=== PATIENT | female | born 1935 | race Caucasian/White ===

== ENCOUNTER 2020-01-22 10:10 | Outpatient (REF) | payer MEDICARE, SELFPAY ==
--- NOTE | 2020-01-22 10:16 | MM_ITS ---
EXAMINATION: MM SCREENING DIGITAL BREAST TOMOSYNTHESIS, BILATERAL CLINICAL INFORMATION: Screening. Asymptomatic. The lifetime risk of breast cancer based on the Tyrer-Cuzick Model is 1%. COMPARISON: Mammography: 12/24/2018, 12/21/2017, 12/19/2016 TECHNIQUE: Digital breast tomosynthesis is performed in both the craniocaudal and mediolateral oblique views along with computer-aided detection (CAD). Synthesized 2D images are generated from the tomosynthesis. FINDINGS: The breasts are almost entirely fatty (ACR BI-RADS breast composition Category a). Background stromal and fibroglandular densities are stable. There is stable nodular asymmetry 3:00 left breast similar to prior studies. No developing density. There is no significant mass or architectural abnormality or abnormal calcifications. MM/MM tomosynthesis screening BI IMPRESSION: No significant changes from prior studies. ASSESSMENT: BI-RADS 2: Benign RECOMMENDATION: Routine annual mammography screening. This patient's information was entered into a reminder system with a target due date for their next mammogram.
== END 2020-01-22 10:11 | disposition home or self-care (01) ==
LOC: HO.MAMMO 10:10
PROVIDERS: PCP Pediatrics; Visit Provider Pediatrics
DX: Z12.31 Encounter for screening mammogram for malignant neoplasm of breast (principal)
CPT/HCPCS: 77063; 77067

== ENCOUNTER 2021-02-10 08:00 | Outpatient (REF) | payer MEDICARE, SELFPAY ==
--- NOTE | ~2021-02-10 | MM_ITS ---
EXAMINATION: MM SCREENING DIGITAL BREAST TOMOSYNTHESIS, BILATERAL CLINICAL INFORMATION: Screening. Asymptomatic. The lifetime risk of breast cancer to age 85 based on the Tyrer-Cuzick Model is under 1%. COMPARISON: Mammography: 01/22/2020, 12/24/2018, 12/21/2017 TECHNIQUE: Digital breast tomosynthesis is performed in both the craniocaudal and mediolateral oblique views along with computer-aided detection (CAD). Synthesized 2D images are generated from the tomosynthesis. Additional left MLO view is provided. FINDINGS: The breasts are almost entirely fatty (ACR BI-RADS breast composition Category a). There are no significant masses, abnormal calcifications, or other abnormalities. Background stromal and fibroglandular densities are stable. No significant changes. MM/MM tomosynthesis screening BI IMPRESSION: No mammographic evidence of malignancy. ASSESSMENT: BI-RADS 1: Negative RECOMMENDATION: Routine annual mammography screening. This patient's information was entered into a reminder system with a target due date for their next mammogram.
== END 2021-02-10 08:01 | disposition home or self-care (01) ==
LOC: HO.MAMMO 08:00
PROVIDERS: PCP Pediatrics; Visit Provider Pediatrics
DX: Z12.31 Encounter for screening mammogram for malignant neoplasm of breast (principal)
CPT/HCPCS: 77063; 77067

== ENCOUNTER 2022-07-12 07:56 | Outpatient (REF) | payer MEDICARE, SELFPAY ==
--- NOTE | ~2022-07-12 | MM_ITS ---
EXAMINATION: MM SCREENING DIGITAL BREAST TOMOSYNTHESIS, BILATERAL CLINICAL INFORMATION: Screening. Asymptomatic. COMPARISON: Mammography: 02/10/2021, 01/22/2020, 12/24/2018 TECHNIQUE: Digital breast tomosynthesis is performed in both the craniocaudal and mediolateral oblique views along with computer-aided detection (CAD). Synthesized 2D images are generated from the tomosynthesis. FINDINGS: There are scattered areas of fibroglandular density (ACR BI-RADS breast composition Category b). There are no significant masses, abnormal calcifications, or other abnormalities. Parenchymal pattern is similar to prior studies. There is no developing density or architectural abnormality. The axilla and skin contours are unremarkable. No significant changes. MM/MM tomosynthesis screening BI IMPRESSION: No mammographic evidence of malignancy. ASSESSMENT: BI-RADS 1: Negative RECOMMENDATION: Routine annual mammography screening. This patient's information was entered into a reminder system with a target due date for their next mammogram.
== END 2022-07-12 07:57 | disposition home or self-care (01) ==
LOC: HO.MAMMO 07:56
PROVIDERS: PCP Pediatrics; Visit Provider Pediatrics
DX: Z12.31 Encounter for screening mammogram for malignant neoplasm of breast (principal)
CPT/HCPCS: 77063; 77067

== ENCOUNTER 2023-07-18 08:10 | Outpatient (REF) | payer MEDICARE, SELFPAY ==
--- NOTE | ~2023-07-18 | MM_ITS ---
EXAMINATION: MM SCREENING DIGITAL BREAST TOMOSYNTHESIS, BILATERAL CLINICAL INFORMATION: Screening. Asymptomatic. COMPARISON: Mammography: 07/12/2022, 02/10/2021, 01/22/2020, 12/24/2018 TECHNIQUE: Digital breast tomosynthesis is performed in both the craniocaudal and mediolateral oblique views along with computer-aided detection (CAD). Synthesized 2D images are generated from the tomosynthesis. A second left MLO view was submitted, as well as a right laterally exaggerated cc view. FINDINGS: There are scattered areas of fibroglandular density (ACR BI-RADS breast composition Category b). Mild but significant decrease in the size of both breasts likely attributable to weight loss. There has been placement of a cardiac loop recorder overlying the posteromedial left breast, just above the nipple line. There are mild vascular calcifications bilaterally. There are no suspicious masses, suspicious grouped calcifications, or areas of architectural distortion in either breast. The parenchymal pattern is stable from prior exams. No suspicious skin or axillary abnormalities. MM/MM tomosynthesis screening BI IMPRESSION: No mammographic evidence of malignancy. New cardiac loop recorder overlying posterior medial left breast. Breasts are slightly smaller, likely indicating weight loss. Otherwise, stable exam. ASSESSMENT: BI-RADS BI-RADS 2 - Benign Findings RECOMMENDATION: Routine annual mammography screening. 1 year F/U This examination should not preclude the clinical evaluation of a suspicious palpable abnormality. This patient's information was entered into a reminder system with a target due date for their next mammogram.
== END 2023-07-18 08:11 | disposition home or self-care (01) ==
LOC: HO.MAMMO 08:10
PROVIDERS: PCP Pediatrics; Visit Provider Pediatrics
DX: Z12.31 Encounter for screening mammogram for malignant neoplasm of breast (principal)
CPT/HCPCS: 77063; 77067

== ENCOUNTER → 2023-07-18 08:30 | Outpatient (BNV) | payer MEDICARE, SELFPAY | PROVIDERS: PCP Pediatrics; Visit Provider Radiology Diagnostic Radiology | DX: Z12.31 Encounter for screening mammogram for malignant neoplasm of breast (principal) | CPT/HCPCS: 77063; 77067 ==

== ENCOUNTER 2024-07-23 08:06 | Outpatient (REF) | payer MEDICARE, SELFPAY ==
--- OUTSIDE RECORDS SUMMARY | 2024-07-23 08:09 | XMS_ITS | Clinical Summary ---
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 Active meclizine (ANTIVERT) 12.5 mg tablet Take 1 Tablet by mouth 3 times daily as needed for Other (vertigo). 3 Active sertraline (ZOLOFT) 25 mg tablet Take 1 tablet (25 mg total) by mouth 1 (one) time each day. 90 tablet 4 Active Additional Information Patient not taking.Reported on 01/29/2024 amLODIPine (NORVASC) 10 mg tablet Take 1 tablet (10 mg total) by mouth 1 (one) time each day. 90 tablet 1 4 Active atenoloL (TENORMIN) 50 mg tablet Take 1 tablet (50 mg total) by mouth 1 (one) time each day. 90 tablet 1 4 Active simvastatin (ZOCOR) 10 mg tablet Take 1 tablet (10 mg total) by mouth at bedtime. 90 tablet 1 4 Active Active Problems Problem Noted Date Diagnosed Date Depression 06/20/2022 TIA (transient ischemic attack) 04/18/2022 Overview (12/19/2023): Implanted monitor 07/27/22. (up to 5 yrs) Polymyalgia rheumatica ([facility] V24) 11/05/2018 Overview (12/19/2023): 06/29---Karan Hypokalemia 02/14/2011 Overview (12/19/2023): hctz Abnormal CXR 10/06/2006 Overview (12/19/2023): RUL density 08/17--improved 09/16, residual scar IMO update Pure hypercholesterolemia 02/16/2006 Essential hypertension, benign 07/07/2005 Overview (12/19/2023): Intol Lisinopril (cough) Irritable bowel syndrome 07/07/2005 Overview (12/19/2023): Bentyl Encounters Date Type Department Care Team Description 05/27/2024 Telephone Adult Medicine - [facility] [address] [place] [address] Michelle Parrish MD Referral from Last 3 Months Immunizations Name Administration Dates Next Due H1N1 Inj Preservative Free 04/07/2009 Influenza trivalent, 0.5mL ( Fluzone High-dose) 65yo and older 12/13/2021,12/08/2020,11/28/2019,12/03,11/27/2017,11/28/2016,11/30/2015 ,12/01/2014,12/09/2013,11/28/2012,12/12,12/08/2010,12/18/2009, 9,01/06/2005 Influenza trivalent, with pr eservative (Fluzone; Afluria) 6mo and older 12/25/2007,12/19/2006 Influenza, Unspecified 12/19/2022,11/30/2015 Moderna SARS-CoV-2 COVID-19, mRNA, LNP-S, preservative free 12/19/2022 Pitadela Covid-19 Bivalent, Or iginal + Ba.1 (Non-US Trademark COMIRNATY Bivalent) 12/29/2021 Pitadela SARS-CoV-2 COVID-19, mRNA, LNP-S, preservative free 12/29/2021,06/30/2021,12/23/2020,05/04,04/13/2020 Pneumococcal conjugate 13 va lent (Prevnar 13, PCV13) 2mo and older 12/01/2014 Pneumococcal polysaccharide 23 valent (Pneumovax 23) 2yo and older 12/25/2007 Respiratory syncytial virus (RSV), unspecified 02/14/2023 Td Tetanus diptheria (Tdvax) 7yo and older 11/18/2020,08/27/2009 Zoster recombinant (Shingrix ) 19yo and older 02/25/2020,12/17/2019 Surgical History Surgery Date Site/Laterality Comments HYSTERECTOMY PROCEDURE: HISTORICAL HYSTERECTOMY COLONOSCOPY 03/25/11 PROCEDURE: HISTORICAL COLONOSCOPY; COMMENT: tics; would not repeat Family History Medical History Relation Name Comments No Known Problems Daughter 1 No Known Problems Daughter 2 No Known Problems Daughter 3 No Known Problems Father No Known Problems Mother No Known Problems Son 1 Heart attack Son 2 Relation Name Status Comments Daughter 1 Alive Daughter 2 Alive Daughter 3 Alive Father Mother Son 1 Alive Son 2 Social History Tobacco Use Types Packs/Day Years Used Date Smoking Tobacco: Never Smokeless Tobacco: Never Tobacco Cessation:Counseling Given: Not Answered Alcohol Use Standard Drinks/Week Comments Yes 0 (1 standard drink = 0.6 oz pur e alcohol) Comments No Sex and Gender Information Value Date Recorded Sex Assigned at Not on file Legal Sex Female 10:16 PM EST Gender Identity Not on file Sexual Orientation Not on file Obstetrics History Last Filed Vital Signs Vital Sign Reading Time Taken Comments Blood Pressure 133/60 01/29/2024 9:46 AM EST Pulse 64 01/29/2024 9:46 AM EST Temperature 36.8 ??C (98.2 ??F) 01/29/2024 9:46 AM ES T Respiratory Rate - - Oxygen Saturation - - Inhaled Oxygen Concentration - - Weight 61.1 kg (134 lb 9.6 oz) 01/29/2024 9:46 A M EST Height 157.5 cm (5' 2 ) 01/29/2024 9:46 AM EST Body Mass Index 24.62 01/29/2024 9:46 AM EST Plan of Treatment Upcoming Encounters Date Type Department Care Team (Late st Contact Info) Description 07/29/2024 8:45 AM EDT Office Visit Adult Medicine - [facility] [address] [place] [address] Michelle Parrish MD [address] [place] [address] Health Maintenance Due Date Last Done Comments RSV Immunization Adult Patients (1 - 1-dose 75+ series) 2011 02/14/2023 Falls Risk Assessment 02/19/2022 Osteoporosis Screening (Bone Density Screening) 02/19/2022 Social Influencers of Health Screening 02/19/2022 COVID-19 Vaccine ( season) 2024 11/17/2023, 12/19/2022, 12/29/2021, Additional history exists Depression Screening 08/31/2024 09/01/2023 Medicare Annual Wellness Visit 08/31/2024 09/01/2023 Hypertension/CHF/CAD Annual BMP Blood Test 01/30/2025 01/31/2024, 07/25/2023 Cholesterol Screening (Lipid Panel) 01/30/2029 01/31/2024, 07/25/2023, 07/25/2023 DTaP,Tdap,and Td Vaccines (3 - Td or Tdap) 11/18/2030 11/18/2020, 08/27/2009 Pneumococcal Vaccine: 50+ Years Completed 12/01/2014, 12/25/2007 Zoster Vaccines Completed 02/25/2020, 12/17/2019 RSV Immunization Patients Under 20 months Aged Out 02/14/2023 No longer eligible based on patient's age to complete this topic Influenza Vaccine Completed 12/29/2023, , 12/13/2021, Additional history exists HIB Vaccines Aged Out No longer eligi ble based on patient's age to complete this topic HPV Vaccines Aged Out No longer eligi ble based on patient's age to complete this topic Hepatitis A Vaccines Aged Out No long er eligible based on patient's age to complete this topic Hepatitis B Vaccines Aged Out No long er eligible based on patient's age to complete this topic IPV Vaccines Aged Out No longer eligi ble based on patient's age to complete this topic MMR Vaccines Aged Out No longer eligi ble based on patient's age to complete this topic Meningococcal ACWY Vaccine Aged Out N o longer eligible based on patient's age to complete this topic Meningococcal B Vaccine Aged Out No l onger eligible based on patient's age to complete this topic Varicella Vaccines Aged Out No longer eligible based on patient's age to complete this topic Procedures Procedure Name Priority Date/Time Associated Diagnosis Comments COMPREHENSIVE METABOLIC PANEL Routine 01/31/2024 8:05 AM EST Essential hypertension, benign Pure hypercholesterolemia LIPID PANEL WITH REFLEX TO DIRECT LDL Routine 01/31/2024 8:05 AM EST Pure hypercholesterolemia HM DEPRESSION SCREENING Routine 09/01/2023 from Last 3 Months or Most Recently Relevant to Health Maintenance Results * Lipid panel with reflex to direct LDL (01/31/2024 8:05 AM EST) Cholesterol 171 0 - 200 mg/dL LAB CHEMISTRY METHOD 01/31/2024 10:56 AM [facility] Triglycerides 86 0 - 150 mg/dL LAB CHEMISTRY METHOD 01/31/2024 10:56 AM [facility] HDL 83 >=40 mg/dL LAB CHEMISTRY METHOD 01/31/2024 10:56 AM [facility] LDL Calculated 71 0 - 100 mg/dL LAB CHEMISTRY METHOD 01/31/2024 10:56 AM [facility] VLDL Cholesterol Davey 17.2 mg/dL LAB CHEMISTRY METHOD 01/31/2024 10:56 AM [facility] Non HDL Chol. (LDL+VLDL) 88 <145 mg/dL LAB CHEMISTRY METHOD 01/31/2024 10:56 AM [facility] Chol/HDL Ratio 2.1 0.0 - 4.4 LAB CHEMISTRY METHOD 01/31/2024 10:56 AM [facility] Blood Venous blood specimen / Unknown Venipuncture / Unknown 01/31/2024 8:05 AM EST 01/31/2024 8:05 AM EST C Daniele Parrish MD LAB BLOOD ORDERABLES Final Res ult [facility] [address] [place] [address], [place] [phone] * (ABNORMAL) Comprehensive metabolic panel (01/31/2024 8:05 AM EST) Sodium 141 133 - 145 mmol/L LAB CHEMISTRY METHOD 01/31/2024 10:52 AM [facility] Potassium 3.9 3.5 - 5.5 mmol/L LAB CHEMISTRY METHOD 01/31/2024 10:52 AM [facility] Chloride 107 96 - 110 mmol/L LAB CHEMISTRY METHOD 01/31/2024 10:52 AM [facility] CO2 27 21 - 32 mmol/L LAB CHEMISTRY METHOD 01/31/2024 10:52 AM [facility] Anion Gap 7 3 - 11 LAB CHEMISTRY METHOD 01/31/2024 10:52 AM [facility] Glucose 101(H) 70 - 100 mg/dL LAB CHEMISTRY METHOD 01/31/2024 10:52 AM [facility] BUN 19 5 - 25 mg/dL LAB CHEMISTRY METHOD 01/31/2024 10:52 AM [facility] Creatinine 0.75 0.50 - 1.10 mg/dL LAB CHEMISTRY METHOD 01/31/2024 10:52 AM [facility] eGFR 77 >=60 mL/min/1. 73m2 LAB CHEMISTRY METHOD 01/31/2024 10:52 AM [facility] Comment:Calculation based on the??Chronic Kidney Disease Epidemiology Collaboration (CKD-EPI) equation refit??without adjustment for race. BUN/Creatinine Ratio 25.3 LAB CHEMISTRY METHOD 01/31/2024 10:52 AM [facility] Calcium 10.0 8.5 - 10.5 mg/dL LAB CHEMISTRY METHOD 01/31/2024 10:52 AM [facility] AST (SGOT) 16 10 - 42 unit/L LAB CHEMISTRY METHOD 01/31/2024 10:52 AM [facility] ALT (SGPT) 18 10 - 60 unit/L LAB CHEMISTRY METHOD 01/31/2024 10:52 AM [facility] Alkaline Phosphatase 80 42 - 121 unit/L LAB CHEMISTRY METHOD 01/31/2024 10:52 AM [facility] Total Protein 7.1 6.0 - 8.0 g/dL LAB CHEMISTRY METHOD 01/31/2024 10:52 AM [facility] Albumin 3.9 3.2 - 5.0 g/dL LAB CHEMISTRY METHOD 01/31/2024 10:52 AM [facility] Total Bilirubin 0.6 0.0 - 1.4 mg/dL LAB CHEMISTRY METHOD 01/31/2024 10:52 AM [facility] Blood Venous blood specimen / Unknown Venipuncture / Unknown 01/31/2024 8:05 AM EST 01/31/2024 8:05 AM EST Michelle Parrish MD LAB BLOOD ORDERABLES Final Res ult [facility] [address] [place] [address], * Depression Screening (09/01/2023) [facility] Depression Screening abstracted us Historical Provider HEALTH MAINTENANCE Final Result from Last 3 Months or Most Recently Relevant to Health Maintenance Insurance MEDICARE [facility] Care Teams Oil Refinery Operator Relationship Specialty Start Date End Date Michelle Parrish MD [address] [place] [address] PCP - General 05/13/05
== END 2024-07-23 08:07 | disposition home or self-care (01) ==
LOC: HO.MAMMO 08:06
PROVIDERS: PCP Pediatrics; Visit Provider Pediatrics
DX: Z12.31 Encounter for screening mammogram for malignant neoplasm of breast (principal)
CPT/HCPCS: 77063; 77067

== ENCOUNTER → 2024-07-23 08:30 | Outpatient (BNV) | payer MEDICARE, SELFPAY | PROVIDERS: PCP Pediatrics; Visit Provider Internal Medicine | DX: Z12.31 Encounter for screening mammogram for malignant neoplasm of breast (principal) | CPT/HCPCS: 77063; 77067 ==